=== PATIENT | female | born 1960 | race Caucasian/White ===

== ENCOUNTER 2016-08-19 09:33 | Emergency (ER) | payer OTHER, BC ==
[2016-08-19 09:54] LABS: EOSINOPHIL (%) 2.6 % (0-5); EOSINOPHIL COUNT 0.1 K/uL (0-0.3); HEMATOCRIT 37.2 % (36.0-46.0); IMMATURE GRANULOCYTE (%) 0.3 % (0.0-0.7); LYMPHOCYTE COUNT 1.1 K/uL (1.0-2.8); MCH 31.9 PG (29.0-34.0); MCHC 33.3 G/DL (30.0-36.0); MCV 95.6 FL (83-99); MONOCYTE (%) 5.5 % (3-12); MONOCYTE COUNT 0.2 K/uL (0-0.8); PLATELET COUNT 187 K/uL (156-360); RBC DIS.WIDTH-CV 12.5 % (11.8-14.6); RBC DIS.WIDTH-SD 43.7 % (39-53); RED BLOOD COUNT 3.89 M/uL (3.80-5.20); WHITE BLOOD COUNT 3.4 K/uL (4.1-10.2)
[2016-08-19 10:05] LABS: AMYLASE 109 IU/L (1-118); CHLORIDE 109 mEq/L (99-109); POTASSIUM 3.9 mEq/L (3.7-5.4); SODIUM 143 mEq/L (136-147)
[2016-08-19 10:07] LABS: GLUCOSE 114 mg/dL (70-99)
[2016-08-19 10:08] LABS: ANION GAP 8 MEQ/L (2-14)
[2016-08-19 10:10] LABS: SERUM ETHYL ALCOHOL < 10 mg/dL
[2016-08-19 10:12] LABS: UREA NITROGEN (BUN) 14 mg/dL (9-23)
[2016-08-19 10:13] LABS: GFR ESTIMATE (CALCULATED) > 59 mL/min/
[2016-08-19 10:14] LABS: LIPASE 52 U/L (1.0-51.0)
== END 2016-08-19 10:59 | disposition home or self-care (01) ==
LOC: TRA 09:33
PROVIDERS: Emergency Medicine
PROC: 0HQ0XZZ Repair Scalp Skin, External Approach (ICD-10-PCS; principal; 2016-08-19)
DX: S06.0X9A Concussion with loss of consciousness of unspecified duration, initial encounter (principal); S01.01XA Laceration without foreign body of scalp, initial encounter; S20.312A Abrasion of left front wall of thorax, initial encounter; S90.511A Abrasion, right ankle, initial encounter; S40.212A Abrasion of left shoulder, initial encounter; V49.40XA Driver injured in collision with unspecified motor vehicles in traffic accident, initial encounter; W22.10XA Striking against or struck by unspecified automobile airbag, initial encounter; E03.9 Hypothyroidism, unspecified; M75.32 Calcific tendinitis of left shoulder
CPT/HCPCS: 70450; 71010; 80048; 81003; 82150; 83690; 85025; 86900; 86901; 93005; 99281; 99284; G0480